=== PATIENT | male | born 1945 | race Caucasian/White ===

== ENCOUNTER → 2020-03-04 | Outpatient (CLI) | payer MEDICARE, OTHER, SELFPAY ==
[2020-03-04 12:46] LABS: International Normalized Ratio 1.2; Prothrombin Time (Protime)PT. 14.5 SECONDS (11.7-14.9)
== END | disposition home or self-care (01) ==
PROVIDERS: PCP Family Medicine
DX: C64.1 Malignant neoplasm of right kidney, except renal pelvis (principal)
CPT/HCPCS: 85610

== ENCOUNTER 2022-07-13 16:46 | Emergency (ER) | payer MEDICARE, OTHER, SELFPAY ==
[2022-07-13 16:49] VITALS: BP 97/74; PULSE 140; RESP 18; TEMP 36; O2SAT 100; BMI 26.5
[2022-07-13 17:08] VITALS: PULSE 58; RESP 18; O2SAT 96
[2022-07-13] MEDS: Aspirin 81 MG TAB.CHEW 324 MG PO (17:36)
--- NOTE | 2022-07-13 17:40 | RAD_ITS ---
STUDY: X-RAY CHEST REASON FOR EXAM: Male, 76 years old. chest pain TECHNIQUE: AP portable COMPARISON: None. FINDINGS: The lungs are clear and expanded. There is no demonstrated pleural abnormality. The heart is mildly enlarged. Normal mediastinum and benigno. Normal visualized pulmonary arteries. Normal visualized aortic arch and descending thoracic aorta. Normal visualized thoracic spine. Normal visualized ribs, clavicles, and shoulders. There is no demonstrated abnormality of the visualized soft tissue structures of the upper abdomen. RAD/Chest 1 View (Portable) IMPRESSION: No acute cardiopulmonary pathology. Electronically Signed: Romel Amin MD at 18:00 EDT ,
[2022-07-13 17:55] LABS: Hematocrit 37.7 % (40-54); Hemoglobin 13.6 g/dL (13.0-16.5); Mean Corp Hgb Conc 36.1 g/dL (32-36); Mean Corpuscular Volume 96.9 fL (80-94); Mean Platelet Vol. 9.9 fl (6.2-12.0); POSITIVE COUNT YES; POSITIVE MORPHOLOGY YES; Platelet Count 154 K/mm3 (150-450); RBC Distribution Width SD 49.1 fl (35.1-43.9); Red Blood Count 3.89 M/mm3 (4.6-6.2); White Blood Count 8.6 K/mm3 (4.4-11.0)
[2022-07-13 18:04] LABS: Differential Indicated MANUAL DIFF
[2022-07-13 18:13] LABS: Anion Gap 7 (5-15); BUN 31 mg/dL (7-18); BUN/Creat Ratio 22.5 RATIO (10-20); Calcium,Total 8.7 mg/dL (8.5-10.1); Chloride 104 mmol/L (98-107); Creatinine, Serum 1.38 mg/dL (0.70-1.30); EST Glomerular Filtration Rate 54 mL/min (>60); Est Glom Filt Rate - Afr Amer 65 mL/min (>60); Estimated Creatinine Clearance 48.49 ml/min; Glucose 137 mg/dL (74-106); Potassium 4.4 mmol/L (3.5-5.1); Sodium Level 135 mmol/L (136-145); Troponin-I HS (w/2H Reflex) 18 pg/mL (3.0-78.0)
[2022-07-13 18:18] VITALS: BP 119/82; PULSE 90; RESP 16; O2SAT 95
[2022-07-13 18:28] LABS: Neutrophil-Band 1 % (0-5); Neutrophil-Segmented 64 % (47-70); Total Cells Counted 100 (MANUAL DIFF)
[2022-07-13 18:31] LABS: Lymphocyte 22 % (19-41); Metamyelocyte 2 % (0-1); Monocyte 10 % (0-10); Myelocyte 1 % (0-0)
[2022-07-13 18:33] LABS: Absolute Neutrophil Count 5.6 X10^3/uL (2.0-7.7)
[2022-07-13 18:34] LABS: Absolute Lymphocyte Count 1.89 X10^3/uL (0.83-4.51)
--- NOTE | 2022-07-13 18:35 | ED.VIS.CHEST ---
HPI History of Present Illness Chief Complaint: Chest Pain Narrative Narrative: 76-year-old male presenting with chest pain and palpitations. He states he has a history of atrial fibrillation and is on Eliquis already. Patient recently hospitalized with COVID-19 and had a full course of remdesivir. He states he had to be admitted because he is on chemotherapy for sarcoma. Patient was just discharged Sunday. He has been feeling well. He states that his poultry offal icer at [facility] who is managing his A. fib recently retired. He is on metoprolol XL 25 mg p.o. twice daily. He reports that sometimes this makes his heart rate slowed down too much into the 40s and 50s and his poultry offal icer told him to hold a dose and then go back to it. Last night and noted his heart rate was in the 40s and held the dose. Today he took it after he noted his heart rate was 140. On arrival to the ER his heart rate has normalized. He does feel like he is having palpitations. Does not feel short of breath. He is eating and drinking normally. Is making normal urine and stool. He is not had any fevers. [facility] Medical History Atrial fibrillation Cardiomyopathy CKD (chronic kidney disease) stage 3, GFR 30-59 ml/min COVID-19 Hypertension Hyponatremia Liposarcoma Pancytopenia Pneumonia due to 2019 novel coronavirus Renal cancer Sarcoma of pelvis Syncope Home Medications acetaminophen 500 mg tablet 1,000 mg PO Q6H PRN Pain 07/13/22 [History Last Taken Unknown] albuterol sulfate 90 mcg/actuation aerosol inhaler inhalation 07/13/22 [History Last Taken Unknown] allopurinol 300 mg tablet 300 mg PO DAILY 07/13/22 [History Last Taken Unknown] apixaban 5 mg tablet (Eliquis) 5 mg PO BID 07/13/22 [History Last Taken Unknown] dexamethasone 6 mg tablet 6 mg PO DAILY 07/13/22 [History Last Taken Unknown] guaifenesin 600 mg tablet, extended release 12 hr 600 mg PO BID 07/13/22 [History Last Taken Unknown] metoprolol succinate 25 mg tablet,extended release 24 hr mg PO 07/13/22 [History Last Taken Unknown] sertraline 25 mg tablet mg 07/13/22 [History Last Taken Unknown] Allergy/AdvReac Type Severity Reaction Status Date / Time cat dander Allergy Other Verified 07/13/22 16:51 dog dander Allergy Other Verified 07/13/22 16:51 Surgical History History of nephrectomy, right Social History Smoking Status: Never smoker ROS ROS ED Constitutional Constitutional ED: Denies chills or fever(s) Eyes Eyes: Denies blurry vision or change in vision ENT ENT ED: Denies rhinorrhea or sore throat Cardiovascular Cardiovascular: Reports as per HPI and palpitations Respiratory/Chest Respiratory/Chest: Denies cough or dyspnea Gastrointestinal Gastrointestinal: Denies abdominal pain Genitourinary Genitourinary ED: Denies dysuria or hematuria Musculoskeletal Musculoskeletal: Denies arthralgias or back pain Integumentary Denies abscess or Abrasions Neurologic Neurologic: Denies headache(s) or paresthesias Psychiatric Psychiatric: Denies anxiety or depression EXAM Physical Exam Const Vital Signs: 07/13/22 16:49 07/13/22 17:08 07/13/22 17:35 Temperature 96.8 F L Temperature Source Temporal Pulse Rate 140 H 58 L Respiratory Rate 18 18 Blood Pressure 97/74 Blood Pressure Mean 81 Pulse Ox 100 96 Oxygen Delivery Method Room Air Room Air Room Air 07/13/22 18:18 07/13/22 20:27 Temperature 97.6 F L Temperature Source Temporal Pulse Rate 90 69 Respiratory Rate 16 18 Blood Pressure 119/82 H 143/96 H Blood Pressure Mean 94 111 Pulse Ox 95 97 Oxygen Delivery Method Room Air Room Air Positive well nourished General Appearance ED: NAD HEENT Reports moist mucous membranes normocephalic Eyes PERRL and EOMs intact bilaterally Chest Wall inspection of chest normal Resp normal respiratory effort and clear to auscultation bilaterally Cardio regular rate and regular rhythm GI normal to inspection, nondistended, normoactive bowel sounds Neuro oriented x3 and CN's II-XII intact bilaterally Sensorium / Orientation: awake and alert Motor Exam: strength 5/5 throughout Heart Score History: Slightly/Non-Suspicious ECG: Normal Age: >/= 65 years Troponin: >1 - <3 Normal Limit Score: 3 MDM MDM MDM Narrative Medical decision making narrative: Patient presenting with chest pressure and palpitations. His initial heart rate was 140 but before we can get an EKG his heart rate normalized. EKG shows a flutter with variable AV block with a rate of 98 bpm. This is on my interpretation. Chest x-ray on my interpretation is no acute cardiopulmonary process and the radiologist agree. CBC shows no leukocytosis. Hemoglobin stable at 13.6. Creatinine elevated 1.38 without comparison. Electrolytes normal. High-sensitivity phone is 18. Patient feels well. I did give him IV fluids because I presume he is dehydrated. I discussed with him his metoprolol dosing and I believe that is why he went into A. fib discussed he is holding a dose of the metoprolol due to slow heart rate and that is probably sending him into A. fib. He is anticoagulated on Eliquis so I have low suspicion for PE. Second high-sensitivity troponin is 31. There is not a change of greater than 20 and this is reassuring given the patient was likely in A. fib flutter at a fast rate. Patient feels well at this time. After receiving IV fluids he feels improved. I did savings counselor him he needs to stay well-hydrated. He is counseled to follow-up with his poultry offal icer to discuss medication changes. He is stable for discharge at this time. Impression: 1. Chest pain 2. History of A. fib 3. History of COVID-19 Lab Data Attestation: I reviewed the patient's lab results. Labs: Laboratory Results - last 24 hr 07/13/22 07/13/22 07/13/22 17:45 17:45 20:00 WBC 8.6 RBC 3.89 L Hgb 13.6 Hct 37.7 L MCV 96.9 H MCH 35.0 H MCHC 36.1 H RDW Std Deviation 49.1 H RDW Coeff of Lazarus 14.0 Plt Count 154 MPV 9.9 Neut % (Auto) Not Reportable Absolute Neuts (auto) 5.6 Absolute Lymphs (auto) 1.89 Total Counted 100 Neutrophils % (Manual) 64 Band Neutrophils % 1 Lymphocytes % (Manual) 22 Monocytes % (Manual) 10 Metamyelocytes % 2 H Myelocytes % 1 H Diff Path Review May foll Sodium 135 L Potassium 4.4 Chloride 104 Carbon Dioxide 24.0 Anion Gap 7 BUN 31 H Creatinine 1.38 H Estim Creat Clear Calc 48.49 Est GFR (MDRD) Af Amer 65 Est GFR (MDRD) Non-Af 54 L BUN/Creatinine Ratio 22.5 H Glucose 137 H Calcium 8.7 Troponin I High Sens 18 31 Radiography Diagnostic Testing: Clinical Impression(s) from Imaging Studies Chest X-Ray 07/13/22 17:40 IMPRESSION: No acute cardiopulmonary pathology. Electronically Signed: Romel Amin MD at 18:00 EDT Reading Location ID and State: [facility] / [place] , Service support , Discharge Plan Triage Chief Complaint: Chest Pain ED Provider: Andres Claudio Dx/Rx/DC Orders Instructions: ED AFIB, ED Chest Pain, Noncardiac Prescriptions: No Action dexamethasone 6 mg tablet 6 mg PO DAILY acetaminophen 500 mg Tablet 1,000 mg PO Q6H PRN (Reason: Pain) sertraline 25 mg tablet allopurinol 300 mg tablet 300 mg PO DAILY metoprolol succinate 25 mg tablet extended release 24 hr PO albuterol sulfate 90 mcg/actuation HFA aerosol inhaler INHALATION Eliquis 5 mg tablet 5 mg PO BID Label Comments: TAKE 1 TABLET BY MOUTH TWICE A DAY guaifenesin 600 mg Tablet Extended Release 12hr 600 mg PO BID Primary Care Provider: Emilio Cohen Referrals: Emilio Cohen MD [Primary Care Provider] - Disposition Disposition: Home, Self Care
[2022-07-13] MEDS: 0.9% Normal Saline 1,000 ML 999 ML IV (18:49)
[2022-07-13 19:52] LABS: Reflex Troponin-HS? (from REC) Y
[2022-07-13 20:26] LABS: Troponin-I HS 31 pg/mL (3.0-78.0)
[2022-07-13 20:27] VITALS: BP 143/96; PULSE 69; RESP 18; TEMP 36.4; O2SAT 97
[2022-07-14 13:10] LABS: Pathologist Review Reviewed
== END 2022-07-13 21:11 | disposition home or self-care (01) ==
PROVIDERS: Emergency Provider Student in an Organized Health Care Education/Training Program; PCP Family Medicine; Visit Provider Student in an Organized Health Care Education/Training Program
DX: R07.9 Chest pain, unspecified (principal); C49.5 Malignant neoplasm of connective and soft tissue of pelvis; I48.91 Unspecified atrial fibrillation; N18.30 Chronic kidney disease, stage 3 unspecified; I12.9 Hypertensive chronic kidney disease with stage 1 through stage 4 chronic kidney disease, or unspecified chronic kidney disease; Z79.01 Long term (current) use of anticoagulants; Z79.899 Other long term (current) drug therapy; Z86.16 Personal history of COVID-19
CPT/HCPCS: 71045; 80048; 84484; 85025; 93005; 96360; 99285; J7030; A4216

== ENCOUNTER 2024-08-27 06:41 | Emergency (ER) | payer MEDICARE, OTHER, SELFPAY ==
[2024-08-27 06:42] VITALS: BP 99/81; PULSE 81; RESP 16; TEMP 36.7; O2SAT 97; BMI 28.7
[2024-08-27 06:46] VITALS: BP 99/81; PULSE 80; RESP 16; TEMP 36.7; O2SAT 98
[2024-08-27 06:50] VITALS: O2SAT 97
--- NOTE | 2024-08-27 07:11 | EKG12_ITS ---
Test Reason : Blood Pressure : */* mmHG Vent. Rate : 82 BPM Atrial Rate : * BPM P-R Int : * ms QRS Dur : 86 ms QT Int : 364 ms P-R-T Axes : * -20 22 degrees QTcB Int : 425 ms Atrial fibrillation with a competing junctional pacemaker Abnormal ECG Confirmed by HELLEN HERNANDEZ ([id number]), international editorial producer ERLINDA RAMIREZ ([id number]) on 08/29/2024 12:04:18 PM Referred By: Confirmed By: HELLEN HERNANDEZ
--- NOTE | 2024-08-27 07:12 | EDS_ITS ---
HPI History of Present Illness Chief Complaint: Cold Sx Informant: patient Narrative Narrative: Sore throat nonproductive cough 2 days. This morning worsening cold sweats. No chest pains no arm pain no dyspnea. Denies sick contacts. However states was with his before the weekend in [place]. Denies fevers. States today decreased urine output. Denies vomiting or diarrhea. 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 He will finish his 21-day cycle in 4 days. He has been in treatment for 2 years. He states cancer affecting his right kidney in the past was resection currently surrounding his left kidney and colon. He is followed by [facility]. History of A-fib on Eliquis. Sore throat is improving. He has been using Mucinex. [facility] Medical History Pancytopenia Pneumonia due to 2019 novel coronavirus Syncope Hyponatremia Liposarcoma Renal cancer CKD (chronic kidney disease) stage 3, GFR 30-59 ml/min COVID-19 Cardiomyopathy Hypertension Sarcoma of pelvis Atrial fibrillation Home Medications ?Medication ?Instructions ?Recorded ?Last Taken ?Type acetaminophen 500 mg tablet 1,000 mg PO Q6H PRN Pain 07/13/22 Unknown History allopurinol 300 mg tablet 150 mg PO DAILY 07/13/22 Unknown History apixaban 5 mg tablet (Eliquis) 5 mg PO BID 07/13/22 Unknown History metoprolol succinate 25 mg 25 mg PO BID 07/13/22 Unknown History tablet,extended release 24 hr lisinopril 5 mg tablet 2.5 mg PO DAILY 08/27/24 Unknown History multivitamin (Daily Multi-Vitamin 1 tab PO DAILY 08/27/24 Unknown History tablet) palbociclib 100 mg capsule 75 mg PO DAILY 08/27/24 Unknown History (Ibrance) thiamine HCl (vitamin B1) 100 mg 100 mg PO DAILY 08/27/24 Unknown History tablet (Vitamin B-1) Allergy/AdvReac Type Severity Reaction Status Date / Time cat dander Allergy Other Verified 08/27/24 06:51 dog dander Allergy Other Verified 08/27/24 06:51 Surgical History History of nephrectomy, right Social History Smoking Status: Never smoker ROS ROS ED Constitutional Constitutional ED: Reports chills and sweats; Denies fever(s) Eyes Eyes: Denies change in vision ENT ENT ED: Reports sore throat; Denies dysphagia Cardiovascular Cardiovascular: Denies chest pain, leg edema, palpitations or racing heartbeat Respiratory/Chest Respiratory/Chest: Reports cough; Denies dyspnea or dyspnea on exertion Gastrointestinal Gastrointestinal: Denies abdominal pain, diarrhea, nausea or vomiting Genitourinary Genitourinary ED: Reports other Details: Decreased urine output. ; Denies dysuria, hematuria or urinary frequency Musculoskeletal Musculoskeletal: Denies back pain, extremity pain or neck pain Integumentary Denies rash or wounds Neurologic Neurologic: Denies headache(s), paresthesias or weakness EXAM Physical Exam Const Vital Signs: 08/27/24 06:42 08/27/24 06:46 08/27/24 06:47 Temperature 98.1 F 98.1 F Temperature Source Oral Oral Pulse Rate 81 80 Respiratory Rate 16 16 Respiratory Effort Normal Respiratory Depth Respiratory Pattern Normal Blood Pressure 99/81 H 99/81 H Blood Pressure Mean 87 87 Pulse Ox 97 98 Oxygen Delivery Method Room Air Room Air 08/27/24 06:50 08/27/24 08:53 Temperature 97.9 F Temperature Source Pulse Rate 77 Respiratory Rate 18 Respiratory Effort Normal Respiratory Depth Normal Respiratory Pattern Normal Blood Pressure 131/96 H Blood Pressure Mean 107 Pulse Ox 97 Oxygen Delivery Method Room Air Positive well nourished and well developed Constitutional Narrative: Nontoxic General Appearance ED: well developed and NAD HEENT Reports moist mucous membranes HEENT Narrative: No posterior pharyngeal erythema normocephalic and atraumatic Eyes EOMs intact bilaterally and conjunctivae normal General Eye ED: Yes normal appearance of both eyes Neck no lymphadenopathy and supple General: Negative for tenderness Chest Wall Chest: Negative for tenderness Resp normal respiratory effort and normal air movement Effort and Inspection: symmetric chest movement; Negative for respiratory distress Cardio regular rate and no murmurs Rhythm: abnormal rhythm Peripheral Pulses: pulses 2+ throughout GI normal to inspection, nondistended, normoactive bowel sounds and non-tender Palpation: Negative for guarding or rebound tenderness present Back/Spine no CVA tenderness and no thoracic nor lumbar tenderness Extremity normal to inspection General Extremety ED: Negative for edema or tenderness General Extremity: Negative for edema Neuro oriented x3 and no sensory deficits noted Sensorium / Orientation: awake and alert Skin no rashes or lesions noted and no wounds MDM MDM MDM Narrative Medical decision making narrative: Interventions / MDM: Differential diagnosis: Viral syndrome, chemotherapy, atrial fibrillation Diagnosis considered but do not suspect: Pneumonia however x-ray negative. PE however chronic anticoagulation with no missed doses My EKG interpretation: A-fib rate of 82, no ST or T wave changes. Imaging independently reviewed and interpreted by myself: 2 view chest x-ray: No acute process. External documents reviewed: N/A Test considered but not ordered:N/A ED course: EKG rate controlled A-fib. Provide viral syndrome with sore throat cough with improving sore throat. Sent for viral swabs urine and labs as he had no recent labs in the system. He is nontoxic. 0810: White count 5.7 he is not neutropenic. Hemoglobin 13.6. Platelets 118 down from 150s 2 years ago. No bleeding issues. Creatinine stable at 1.42 compared to 1.38, 2 years ago. Urine only had 25 leukocytes. Will send for culture. Chest x-ray negative swabs were negative. Discussed viral symptoms with the patient. Discussed continues Mucinex oral fluids monitor for any worsening symptoms and return precautions. Patient understands and agrees with plan. All questions were answered. Re-evaluation: stable Disposition discussed with patient/family/significant other: Patient Case discussed with consulting clinician: N/A This note was generated with [employer] dictation software. It may contain incorrect words, spelling, and punctuation that were not noted in checking the note before signing. Lab Data Attestation: I reviewed the patient's lab results. Labs: Laboratory Results - last 24 hr 08/27/24 08/27/24 07:22 07:27 WBC 5.7 RBC 3.85 L Hgb 13.6 Hct 38.4 L MCV 99.7 H MCH 35.3 H MCHC 35.4 RDW Std Deviation 47.6 H RDW Coeff of Lazarus 13.1 Plt Count 118 L MPV 10.2 Immature Gran % (Auto) 0.700 Neut % (Auto) 84.2 H Lymph % (Auto) 8.1 L [place] % (Auto) 5.8 Eos % (Auto) 0.7 Baso % (Auto) 0.5 Absolute Neuts (auto) 4.8 Absolute Lymphs (auto) 0.46 L Nucleated RBC % 0 Differential Comment COMMENT Sodium 135 L Potassium 4.2 Chloride 106 Carbon Dioxide 25.0 Anion Gap 4 L BUN 16 Creatinine 1.42 H Estim Creat Clear Calc 50.13 Est GFR (MDRD) Af Amer 62 Est GFR (MDRD) Non-Af 51 L BUN/Creatinine Ratio 11.3 Glucose 130 H Calcium 8.8 Urine Color Yellow Urine Clarity Clear Urine pH 7.0 Ur Specific [place] 1.010 Urine Protein 15 H Urine Glucose (UA) Normal Urine Ketones Negative Urine Occult Blood Negative Urine Nitrite Negative Urine Bilirubin Negative Urine Urobilinogen 4 H Ur Leukocyte Esterase 25 H Urine RBC 0 SEEN Urine WBC 0-5 SEEN Ur Squamous Epith Cells 0-5 SEEN Urine Bacteria 0 SEEN Urine Mucus 0 SEEN Radiography Diagnostic Testing: Clinical Impression(s) from Imaging Studies Chest X-Ray 08/27/24 07:40 IMPRESSION: No acute abnormality is seen. Electronically Signed: Hesham Alcaraz MD at 8:13 EST Reading Location ID and State: [facility] / [place] , Service support , Discharge Plan Triage Chief Complaint: Cold Sx ED Provider: Abelino Corcoran Dx/Rx/DC Orders Clinical Impression: Acute viral syndrome, Atrial fibrillation, controlled, Thrombocytopenia, CKD (chronic kidney disease) stage 3, GFR 30-59 ml/min Instructions: AFib Dc, CKD Dc, ED URI, Viral, No Abx (Adult) Prescriptions: No Action acetaminophen 500 mg Tablet 1,000 mg PO Q6H PRN (Reason: Pain) allopurinol 300 mg tablet 150 mg PO DAILY metoprolol succinate 25 mg tablet extended release 24 hr 25 mg PO BID Eliquis 5 mg tablet 5 mg PO BID Patient Comments: TAKE 1 TABLET BY MOUTH TWICE A DAY lisinopril 5 mg tablet 2.5 mg PO DAILY Ibrance 100 mg capsule 75 mg PO DAILY Rx Instructions: administer on days 1 through 21 of a 28-day treatment cycle multivitamin [Daily Multi-Vitamin] Tablet 1 tab PO DAILY thiamine HCl (vitamin B1) [Vitamin B-1] 100 mg tablet 100 mg PO DAILY Primary Care Provider: Román Cohen Referrals: Emilio Cohen MD [Non-Staff] - Activity Restrictions/Additional Instructions: Chest x-ray negative. COVID, RSV, influenza negative. Labs stable Creatinine 1.42, GFR 51. Platelets 118. Hemoglobin 13.6. WBC 5.7. EKG rate controlled A-fib. Continue Eliquis. Continue oral fluids for hydration. Follow-up your doctor. You develop worsening symptoms specially wi th fevers and shortness of breath, return to the ED for reevaluation. Print Language: Kinyarwanda Disposition Disposition: Home, Self Care Discharge Date/Time: 08/27/24 08:54
[2024-08-27 07:26] LABS: Bacteria 0 SEEN /hpf (None Seen); Mucous, Urine 0 SEEN /hpf (<or=2+); Red Blood Cells-Urine 0 SEEN /hpf (0-5)
[2024-08-27 07:36] LABS: Absolute Lymphocyte Count 0.46 X10^3/uL (0.83-4.51); Absolute Neutrophil Count 4.8 X10^3/uL (2.0-7.7); Basophil# 0.03 X10^3/uL; Basophil% 0.5 % (0-1); Eosinophil# 0.04 X10^3/uL; Eosinophils% 0.7 % (0-5); Hematocrit 38.4 % (40-54); Hemoglobin 13.6 g/dL (13.0-16.5); Lymphocyte # 0.46 X10^3/ul (0.83-4.51); Lymphocyte % 8.1 % (19-41); Mean Corp Hgb Conc 35.4 g/dL (32-36); Mean Corpuscular Hgb 35.3 pg (27.0-32.0); Mean Corpuscular Volume 99.7 fL (80-94); Mean Platelet Vol. 10.2 fl (6.2-12.0); Monocyte# 0.33 X10^3/uL; Monocyte% 5.8 % (0-10); NRBC Flagged by Analyzer 0 % (0-5); Neutrophil # 4.79 X10^3/uL (2.7-7.7); Neutrophil % 84.2 % (47-70); POSITIVE DIFFERENTIAL YES; POSITIVE MORPHOLOGY YES; Platelet Count 118 K/mm3 (150-450); RBC Distribution Width CV 13.1 % (11.6-14.6); RBC Distribution Width SD 47.6 fl (35.1-43.9); Red Blood Count 3.85 M/mm3 (4.6-6.2); White Blood Count 5.7 K/mm3 (4.4-11.0)
[2024-08-27 07:38] LABS: Color, Urine Yellow (Yellow); Glucose, Dipstick Normal (Normal); Ketone-Dipstick Negative (Negative); Leukocyte Esterase-Dipstick 25 /ul (Negative); Nitrite-Dipstick Negative (Negative); Occult Blood-Urine Negative /ul (Negative); Protein-Dipstick 15 mg/dl (Negative); Urine Bilirubin Dipstick Negative (Negative); Urine Clarity Clear (Clear); Urine Urobilinogen 4 mg/dl (Normal)
--- NOTE | 2024-08-27 07:40 | RAD_ITS ---
STUDY: X-RAY CHEST REASON FOR EXAM: Male, 78 years old. Cough TECHNIQUE: PA and lateral views of the chest. COMPARISON: Comparison is made with prior study dated July 13, 2022. FINDINGS: EKG electrodes are seen. The lungs are clear and expanded. There is no demonstrated pleural abnormality. Normal size heart. Normal mediastinum and benigno. Normal visualized pulmonary arteries. Normal visualized aortic arch and descending thoracic aorta. There is demineralization of the osseous structures. Normal visualized ribs, clavicles, and shoulders. There is no demonstrated abnormality of the visualized soft tissue structures of the upper abdomen. RAD/Chest PA and Lateral IMPRESSION: No acute abnormality is seen. Electronically Signed: Hesham Alcaraz MD at 8:13 EST ,
[2024-08-27 07:42] LABS: Differential Indicated SCAN CRITERIA MET
[2024-08-27 07:46] LABS: Squamous Epithelial Cells - UA 0-5 SEEN /hpf (0-5); White Blood Cells 0-5 SEEN /hpf (0-5)
[2024-08-27 07:47] LABS: Anion Gap 4 (5-15); BUN 16 mg/dL (7-18); BUN/Creat Ratio 11.3 RATIO (10-20); Calcium,Total 8.8 mg/dL (8.5-10.1); Chloride 106 mmol/L (98-107); Creatinine, Serum 1.42 mg/dL (0.70-1.30); EST Glomerular Filtration Rate 51 mL/min (>60); Est Glom Filt Rate - Afr Amer 62 mL/min (>60); Estimated Creatinine Clearance 50.13 ml/min; Glucose 130 mg/dL (74-106); Potassium 4.2 mmol/L (3.5-5.1); Sodium Level 135 mmol/L (136-145)
[2024-08-27 08:53] VITALS: BP 131/96; PULSE 77; RESP 18; TEMP 36.6; O2SAT 97
== END 2024-08-27 08:54 | disposition home or self-care (01) ==
PROVIDERS: Emergency Provider Emergency Medicine; PCP Family Medicine; Visit Provider Emergency Medicine
DX: B34.9 Viral infection, unspecified (principal); C41.4 Malignant neoplasm of pelvic bones, sacrum and coccyx; I48.91 Unspecified atrial fibrillation; N18.30 Chronic kidney disease, stage 3 unspecified; I12.9 Hypertensive chronic kidney disease with stage 1 through stage 4 chronic kidney disease, or unspecified chronic kidney disease; D69.6 Thrombocytopenia, unspecified; Z79.01 Long term (current) use of anticoagulants; Z79.899 Other long term (current) drug therapy; Z86.16 Personal history of COVID-19
CPT/HCPCS: 71046; 80048; 81001; 85025; 87086; 87631; 93005; 99285; A4216

== ENCOUNTER 2025-08-03 11:46 | Emergency (ER) | payer MEDICARE, OTHER, SELFPAY ==
[2025-08-03 11:47] VITALS: BP 99/66; PULSE 72; RESP 18; TEMP 36.6; O2SAT 98
--- NOTE | 2025-08-03 12:39 | RAD_ITS ---
PROCEDURE: RAD/Chest 1 View (Portable)
--- NOTE | 2025-08-03 12:41 | EX.ED.DYSGE1 ---
HPI History of Present Illness Chief Complaint: Hypotension Informant: patient, spouse/S.O. and PCP Narrative Narrative: Patient is a 79-year-old male with a history of Ahuja's sarcoma presenting with fatigue and weakness following chemotherapy. Patient is accompanied by his , who is supplementing history. - Last chemotherapy session was one week ago. Reports feeling drained and fatigued since the session. - Noted tingling and numbness in fingers bilaterally, which started after chemotherapy. No focal neuro sx anywhere else. - Denies lightheadedness or near-syncope, but is cautious when standing due to unsteadiness. - Decreased appetite, consuming smaller meals and trying to drink fluids at home with pedialyte. Reports probable inadequate fluid intake, denies emesis or diarrhea. States this has happened before and states he perked right up after IV fluids. -Seen in office today in follow-up blood pressure was low at 82/54 in the office so sent to ER. - Experienced constipation this week, but reports resolution. - Denies hematochezia or melena. - No recent fevers. - Urinary output is reportedly normal. - Received fluids and electrolytes after last chemotherapy session, which improved symptoms. [facility] Medical History History of chemotherapy Diverticulosis CHF (congestive heart failure) Hx of nasal polyp History of cardioversion Lung cancer Pancytopenia Pneumonia due to 2019 novel coronavirus Syncope Hyponatremia Liposarcoma Renal cancer CKD (chronic kidney disease) stage 3, GFR 30-59 ml/min COVID-19 Cardiomyopathy Hypertension Sarcoma of pelvis Atrial fibrillation Home Medications ?Medication ?Instructions ?Recorded ?Last Taken ?Type apixaban 5 mg tablet (Eliquis) 5 mg PO BID 07/13/22 Unknown History lisinopril 5 mg tablet 2.5 mg PO DAILY 08/27/24 Unknown History multivitamin (Daily Multi-Vitamin 1 tab PO DAILY 08/27/24 Unknown History tablet) thiamine HCl (vitamin B1) 100 mg 100 mg PO DAILY 08/27/24 Unknown History tablet (Vitamin B-1) allopurinol 300 mg tablet 300 mg PO DAILY 06/01/25 Unknown History citalopram 20 mg tablet 20 mg PO QDAY 06/01/25 Unknown History dexamethasone 4 mg tablet 4 mg PO BID 06/01/25 Unknown History docusate calcium 240 mg capsule 240 mg PO QDAY 06/01/25 Unknown History metoprolol succinate 50 mg 25 mg PO Q12H 08/03/25 Unknown History tablet,extended release 24 hr Allergy/AdvReac Type Severity Reaction Status Date / Time mold (mold spores) Allergy Unknown congestion Verified 08/03/25 11:49 cat dander Allergy Other Verified 08/03/25 11:49 dog dander Allergy Other Verified 08/03/25 11:49 Family History Mother Heart disease Sister Multiple sclerosis Maternal Grandmother Breast cancer Surgical History History of cardiac ablation for atrial fibrillation Hx of appendectomy S/P ureteral stent placement History of nephrectomy, right Social History Smoking Status: Former smoker Tobacco: How many years used: 16 alcohol intake: former year quit: 2018 ROS ROS ED Constitutional Constitutional ED: Reports fatigue and weakness; Denies chills or fever(s) Eyes Eyes: Denies change in vision or diplopia ENT ENT ED: Denies rhinorrhea or sore throat Cardiovascular Cardiovascular: Denies chest pain, leg edema, lightheadedness, palpitations or syncope Respiratory/Chest Respiratory/Chest: Denies cough or dyspnea Gastrointestinal Gastrointestinal: Reports constipation; Denies abdominal pain, diarrhea, nausea or vomiting Genitourinary Genitourinary ED: Denies dysuria or hematuria Musculoskeletal Musculoskeletal: Denies back pain or neck pain Integumentary Denies abscess or rash Neurologic Neurologic: Denies headache(s), paresthesias or weakness Psychiatric Psychiatric: Denies anxiety or suicidal thoughts EXAM Physical Exam Const Vital Signs: 08/03/25 11:47 08/03/25 12:39 08/03/25 12:46 Temperature 98 F 98.3 F Temperature Source Temporal Oral Pulse Rate 72 80 Respiratory Rate 18 16 Respiratory Effort Normal Non-Labored Respiratory Pattern Normal Blood Pressure 99/66 120/76 Blood Pressure Mean 77 90 Pulse Ox 98 98 Oxygen Delivery Method Room Air Room Air 08/03/25 13:24 08/03/25 14:00 08/03/25 14:00 Temperature 98.6 F 98.7 F Temperature Source Oral Oral Pulse Rate 88 86 87 Respiratory Rate 18 16 16 Respiratory Effort Respiratory Pattern Blood Pressure 109/77 121/79 H 118/82 H Blood Pressure Mean 87 93 94 Pulse Ox 98 94 98 Oxygen Delivery Method Room Air Room Air Room Air 08/03/25 15:00 Temperature Temperature Source Pulse Rate 93 Respiratory Rate 19 H Respiratory Effort Respiratory Pattern Blood Pressure 120/83 H Blood Pressure Mean 95 Pulse Ox 97 Oxygen Delivery Method Room Air Positive well nourished and well developed Constitutional Narrative: Well-appearing no distress General Appearance ED: well developed and NAD HEENT Reports moist mucous membranes normocephalic and atraumatic Eyes PERRL and EOMs intact bilaterally Neck full ROM and supple Resp normal respiratory effort and clear to auscultation bilaterally Cardio regular rate, regular rhythm and no murmurs Rate: Negative for bradycardia or tachycardic GI non-tender and non-distended Auscultation: normoactive bowel sounds Palpation: soft Back/Spine no CVA tenderness General Back: other FROM Extremity normal to inspection General Extremety ED: Negative for edema, pulses abnormal or tenderness General Extremity: Negative for edema or pulses abnormal Neuro oriented x3, CN's II-XII intact bilaterally and no sensory deficits noted Sensorium / Orientation: awake and alert Motor Exam: strength 5/5 throughout Skin no rashes or lesions noted and no wounds MDM MDM MDM Narrative Medical decision making narrative: Assessment: The patient is a 79-year-old male with 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 Symptoms and laboratory evidence of prerenal azotemia improved after a 1 L IV fluid bolus, supporting dehydration as the primary etiology of his hypotension and malaise. Screening labs reveal pancytopenia (Hgb 8.6 g/dL, platelets 65 K, WBC low with ANC ~700) without emergent transfusion criteria and mild hyponatremia (Na 127 mEq/L). Afebrile, hemodynamically stable post-fluids, and no active bleeding. After discussion of results and condition with his oncologist, safe outpatient management was agreed upon. Plan: - Accessed implanted port and administered 1 L IV crystalloid bolus. - Performed screening labs. - Provided oral hydration guidance and return precautions (fever, bleeding, worsening weakness). - Coordinated follow-up with Dr. Liu Freeman oncology office [facility]. - Discharged home in stable condition per shared decision with oncology. Diagnostics: - Labs: prerenal azotemia; Hgb 8.6 g/dL; platelets 65 K/?L; WBC low with ANC ~700 (leukopenia without neutropenia); sodium 127 mEq/L. Consultations: - Dr. Liu Freeman (oncology) ? reviewed labs and clinical status; concurs with discharge home and close outpatient follow-up. Reevaluations: - Post-bolus: reports marked symptomatic improvement; BP improved to 118/82; vitals otherwise normal. History & Record Review Additional record(s) reviewed:: Prior labs Lab Data Attestation: I reviewed the patient's lab results. Labs: Laboratory Results - last 24 hr 08/03/25 08/03/25 13:28 13:34 WBC 0.8 L* RBC 2.75 L Hgb 8.6 L Hct 25.3 L MCV 92.0 MCH 31.3 MCHC 34.0 RDW Std Deviation 47.3 H RDW Coeff of Lazarus 14.1 Plt Count 65 L MPV 9.7 Neut % (Auto) Not Reportable Absolute Neuts (auto) 0.7 L Absolute Lymphs (auto) 0.09 L Total Counted 100 Neutrophils % (Manual) 85 H Lymphocytes % (Manual) 11 L Monocytes % (Manual) 3 Eosinophils % (Manual) 1 Platelet Estimate MKD DEC RBC Morphology NORM C+C Sodium 127 L Potassium 3.9 Chloride 96 L Carbon Dioxide 24.5 Anion Gap 7 BUN 23 H Creatinine 0.94 Estim Creat Clear Calc 73.57 Est GFR (MDRD) Non-Af 84 BUN/Creatinine Ratio 24.5 H Glucose 88 Calcium 8.3 Total Bilirubin 0.93 AST 14 ALT 17 Alkaline Phosphatase 81 Total Protein 4.5 L Albumin 3.1 L Globulin 1.5 L Albumin/Globulin Ratio 2.1 Urine Color Yellow Urine Clarity Clear Urine pH 7.0 Ur Specific Temple 1.010 Urine Protein 15 H Urine Glucose (UA) Normal Urine Ketones Negative Urine Occult Blood Negative Urine Nitrite Negative Urine Bilirubin Negative Urine Urobilinogen 8 H Ur Leukocyte Esterase Negative Urine RBC 0 SEEN Urine WBC 0 SEEN Ur Squamous Epith Cells 0-5 SEEN Urine Bacteria 0 SEEN Urine Mucus 0 SEEN Radiography Diagnostic Testing: Clinical Impression(s) from Imaging Studies Chest X-Ray 08/03/25 12:39 IMPRESSION: There is a 2.8 cm nodular density in the right perihilar region. There is a port in position on the right. [facility] R[facility] Rhythm Strip: A-fib Rate: 90 Ectopy: None EKG Initial EKG: Attestation: I personally reviewed and interpreted this EKG as follows: Interpretation: No Acute Injury Pattern and Atrial Fibrillation Prior EKG tracings: available for review Prior: Unchanged Discharge Plan Triage Chief Complaint: Hypotension ED Provider: Sher Kemp Dx/Rx/DC Orders Clinical Impression: Acquired pancytopenia, Acute hyponatremia, Acquired immunocompromised state, Liposarcoma, Mild dehydration, Chronic atrial fibrillation, Anticoagulated on apixaban Instructions: Chemotherapy and Dehydration Prescriptions: No Action citalopram 20 mg tablet 20 mg PO QDAY dexamethasone 4 mg tablet 4 mg PO BID docusate calcium 240 mg capsule 240 mg PO QDAY Eliquis 5 mg tablet 5 mg PO BID Patient Comments: TAKE 1 TABLET BY MOUTH TWICE A DAY allopurinol 300 mg tablet 300 mg PO DAILY lisinopril 5 mg tablet 2.5 mg PO DAILY multivitamin [Daily Multi-Vitamin] Tablet 1 tab PO DAILY thiamine HCl (vitamin B1) [Vitamin B-1] 100 mg tablet 100 mg PO DAILY metoprolol succinate 50 mg tablet extended release 24 hr 25 mg PO Q12H Primary Care Provider: Román Cohen Referrals: magalie [Other, Hematology & Oncology] - As soon as possible Activity Restrictions/Additional Instructions: - You received a 1-liter IV fluid bolus through your MediPort today to treat dehydration, and your blood pressure improved. - Lab results showed mild dehydration (pre-renal azotemia), low sodium (127), and decreased blood counts (ANC ~700, platelets 65,000, hemoglobin 8.6); no urgent transfusion or inpatient care is needed at this time. - Continue your oncology care with Dr. Marty Freeman at [facility]?colin Barrientos. - Monitor for any fever or other new symptoms of illness and contact your oncology team promptly if they occur. Print Language: Chinese Disposition Disposition: Home, Self Care
[2025-08-03 12:45] VITALS: BMI 27.8
[2025-08-03 12:46] VITALS: BP 120/76; PULSE 80; RESP 16; TEMP 36.8; O2SAT 98
[2025-08-03 13:24] VITALS: BP 109/77; PULSE 88; RESP 18; TEMP 37; O2SAT 98
[2025-08-03] MEDS: 0.9% Normal Saline (1000mL) 1,000 ML 1000 ML IV (13:26)
[2025-08-03 13:42] LABS: Hematocrit 25.3 % (40-54); Hemoglobin 8.6 g/dL (13.0-16.5); Mean Corp Hgb Conc 34.0 g/dL (32-36); Mean Corpuscular Volume 92.0 fL (80-94); Mean Platelet Vol. 9.7 fl (6.2-12.0); POSITIVE COUNT YES; POSITIVE DIFFERENTIAL YES; POSITIVE MORPHOLOGY YES; Platelet Count 65 K/mm3 (150-450); RBC Distribution Width CV 14.1 % (11.6-14.6); RBC Distribution Width SD 47.3 fl (35.1-43.9); Red Blood Count 2.75 M/mm3 (4.6-6.2)
[2025-08-03 14:00] VITALS: BP 118/82; BP 121/79; PULSE 86; PULSE 87; RESP 16; TEMP 37.1; O2SAT 94; O2SAT 98
[2025-08-03 14:02] LABS: Differential Indicated MANUAL DIFF
[2025-08-03 14:04] LABS: AST(SGOT) 14 U/L (<=37); Alanine Aminotransfer ALT/SGPT 17 U/L (<=46); Albumin, Serum 3.1 g/dL (3.4-4.8); Alkaline Phosphatase 81 U/L (40-129); Anion Gap 7 (5-15); BUN 23 mg/dL (4-19); BUN/Creat Ratio 24.5 RATIO (10-20); Calcium,Total 8.3 mg/dL (7.6-11.0); Carbon Dioxide 24.5 mmol/L (21.0-32.0); Chloride 96 mmol/L (98-108); Estimated Creatinine Clearance 73.57 ml/min (50-250); Globulin 1.5 g/dL (2.2-4.2); Glucose 88 mg/dL (70-99); Potassium 3.9 mmol/L (3.3-5.1); White Blood Count 0.8 K/mm3 (4.4-11.0)
[2025-08-03 14:09] LABS: Mucous, Urine 0 SEEN /hpf (<or=2+); Red Blood Cells-Urine 0 SEEN /hpf (0-5)
[2025-08-03 14:11] LABS: Color, Urine Yellow (Yellow); Glucose, Dipstick Normal (Normal); Ketone-Dipstick Negative (Negative); Leukocyte Esterase-Dipstick Negative /ul (Negative); Nitrite-Dipstick Negative (Negative); Occult Blood-Urine Negative /ul (Negative); Protein-Dipstick 15 mg/dl (Negative); Specific Gravity, Urine 1.010 (1.002-1.030); Urine Bilirubin Dipstick Negative (Negative)
[2025-08-03 14:17] LABS: Squamous Epithelial Cells - UA 0-5 SEEN /hpf (0-5)
[2025-08-03 14:18] LABS: Neutrophil-Segmented 85 % (47-70); Total Cells Counted 100 (MANUAL DIFF)
[2025-08-03 14:19] LABS: Red Cell Morphology NORM C+C NORMAL (NORM C&C)
[2025-08-03 15:00] VITALS: BP 120/83; PULSE 93; RESP 19; O2SAT 97
[2025-08-03 15:38] VITALS: BP 112/83; PULSE 89; RESP 21; TEMP 36.8; O2SAT 98
== END 2025-08-03 15:46 | disposition home or self-care (01) ==
PROVIDERS: Emergency Provider Emergency Medicine; PCP Family Medicine; Visit Provider Emergency Medicine
DX: D61.818 Other pancytopenia (principal); C49.9 Malignant neoplasm of connective and soft tissue, unspecified; I13.0 Hypertensive heart and chronic kidney disease with heart failure and stage 1 through stage 4 chronic kidney disease, or unspecified chronic kidney disease; I50.9 Heart failure, unspecified; I48.20 Chronic atrial fibrillation, unspecified; N18.30 Chronic kidney disease, stage 3 unspecified; E87.1 Hypo-osmolality and hyponatremia; I95.9 Hypotension, unspecified; K59.00 Constipation, unspecified; Z79.01 Long term (current) use of anticoagulants; Z79.899 Other long term (current) drug therapy; Z92.21 Personal history of antineoplastic chemotherapy; Z87.891 Personal history of nicotine dependence
CPT/HCPCS: 36591; 71045; 80053; 81001; 85025; 93005; 96360; 96361; 99283